=== PATIENT | male | born 1970 | race Two or more races ===

== ENCOUNTER 2017-06-02 14:28 | Observation (INO) | payer SELFPAY ==
[2017-06-02 14:38] VITALS: BMI 32.3
--- NOTE | 2017-06-02 17:01 | DR.EXTPAIN ---
HPI - Time seen Time seen: 16:57 - PCP Primary Care Physician: NFD - Complaint/Symptoms Chief Complaint Doctor Comments: States he fell off the back of a trailer about three feet high because the door was open and he fell off the trailer. states he hit his head but denies LOC. States he went to the clinic today and they did x-rays and told him that he had to have his clavicle cut. States he do not want to have another x-ray and refuses to have x-ray of his neck or repeat xray of his shoulder. Chief Complaint:: FELL AND BROKE COLLAR. INSIDE OF TRAILOR AT END OF TRAILOR NO DOORS. I FELL ON THE DIRT. FELL Sunday06/01/17 ABOUT 1300. WENT TO [facility] IN [facility] - Source History Provided: Patient - Mode of arrival Mode of Arrival: Ambulatory - Timing Onset of Chief Complaint: 06/01/17 PMH - PMH Past Medical History: No Past Surgical History: No - Family History History of Family Medical Conditions: No - Social History Does any household member use tobacco: No Alcohol Use: Rarely Do you use any recreational Drugs:: No Lives With: Family Lives Where: Home - infectious screening In the last 2 months have you had wt loss of >10#?: NO Have you had fever, night sweats or hemotysis?: No Have you traveled outside the country in the last 6 months?: No Isolation: Standard ROS - Review of Systems Constitutional: No Symptoms Reported Eyes: No Symptoms Reported ENTM: No Symptoms Reported Respiratoy: No Symptoms Reported. negative: See HPI, Productive Cough, Non- Productive Cough, Moist Cough, Dry Cough, Hacking Cough, Barking Cough, Brassy Cough, Orthopnea, Short of Breath, Stridor, Wheezing, Hemoptysis, Other Cardiovascular: No Symptoms Reported Gastrointestinal/Abdominal: No Symptoms Reported Genitourinary: No Symptoms Reported Neurological: No Symptoms Reported. negative: See HPI, Anxiety, Depressed, Emotional Problems, Headache, Numbness, Paresthesia, Pre-existing Deficit, Seizure, Tingling, Tremors, Weakness, Dizziness, Problems Walking, Speech Problem, Other Musculoskeletal: No Symptoms Reported, Left, Shoulder Integumentary: No Symptoms Reported Hematologic/Lymphatic: No Symptoms Reported Endocrine: No Symptoms Reported Psychiatric: No Symptoms Reported. negative: See HPI, Anxiety, Depression, Hallucinations, Excessive crying, Suicidal, Other PE - Vital Signs Vitals: Temperature 98.7 F Pulse Rate 68 Respiratory Rate 20 Blood Pressure 136/87 O2 Sat by Pulse Oximetry 98 ROR - Labs Reviewed Result Diagrams: 06/02/17 18:20 06/02/17 18:20 Laboratory: WBC 9.8 X10^3/uL (3.6-10.0) 06/02/17 18:20 RBC 5.08 X10^6/uL (4.7-6.0) 06/02/17 18:20 Hgb 14.3 g/dL (13.5-18.0) 06/02/17 18:20 Hct 42.5 % (42.0-54.0) 06/02/17 18:20 MCV 83.7 fL (80.0-100.0) 06/02/17 18:20 MCH 28.2 pg (27.0-34.0) 06/02/17 18:20 MCHC 33.7 g/dL (33.0-35.0) 06/02/17 18:20 RDW 13.4 % (11.6-16.5) 06/02/17 18:20 Plt Count 235 X10^3/uL (150.0-450.0) 06/02/17 18:20 MPV 8.8 fL (7.4-11.0) 06/02/17 18:20 Neut % 54.7 % (42.0-75.0) 06/02/17 18:20 Lymph % 34.2 % (21.0-51.0) 06/02/17 18:20 [place] % 7.9 % (0.0-13.0) 06/02/17 18:20 Eos % 2.7 % (0.9-2.9) 06/02/17 18:20 Baso % 0.5 % (0.2-1.0) 06/02/17 18:20 Neut # 5.3 x10^3/uL (2.2-4.8) H 06/02/17 18:20 Lymph # 3.4 X10^3/uL (1.3-2.9) H 06/02/17 18:20 [place] # 0.8 x10^3/uL (0.3-0.8) 06/02/17 18:20 Eos # 0.3 x10^3/uL (0.0-0.2) H 06/02/17 18:20 Baso # 0.1 X10^3/uL (0.0-0.1) 06/02/17 18:20 Absolute Nucleated RBC 0.1 /100WBC 06/02/17 18:20 INR Target Range - 06/02/17 18:20 INR 0.95 (0.8-1.3) 06/02/17 18:20 PTT 31.8 SECONDS (22.9-36.5) 06/02/17 18:20 PTT Comment - 06/02/17 18:20 Sodium 139 mmol/L (136-145) 06/02/17 18:20 Corrected Sodium TNP 06/02/17 18:20 Potassium 4.3 mmol/L (3.5-5.1) 06/02/17 18:20 Chloride 105 mmol/L (98-107) 06/02/17 18:20 Carbon Dioxide 25.9 mmol/L (21-32) 06/02/17 18:20 BUN 16 mg/dL (7-18) 06/02/17 18:20 Creatinine 1.11 mg/dL (0.70-1.30) 06/02/17 18:20 Est GFR (MDRD) Af Amer > 60 (>60) 06/02/17 18:20 Est GFR (MDRD) Non-Af > 60 (>60) 06/02/17 18:20 Glucose 98 mg/dL (65-99) 06/02/17 18:20 Calcium 8.3 mg/dL (8.5-10.1) L 06/02/17 18:20 Corrected Calcium TNP 06/02/17 18:20 Total Bilirubin 0.40 mg/dL (0.2-1.0) 06/02/17 18:20 AST 19 Units/L (15-37) 06/02/17 18:20 ALT 32 Units/L (12-78) 06/02/17 18:20 Alkaline Phosphatase 55 Units/L (46-116) 06/02/17 18:20 Total Protein 7.8 g/dL (6.4-8.2) 06/02/17 18:20 Albumin 3.9 g/dL (3.4-5.0) 06/02/17 18:20 Globulin 3.9 g/dL (2.5-4.5) 06/02/17 18:20 Albumin/Globulin Ratio 1.0 Ratio (1.1-2.1) L 06/02/17 18:20 - XRAY XRAY Interpreted by: Radiologist (CT chest: Left midclavicular fracture. No acute traumatic injury to the lungs) - Diagnosis Discharge Problem: Closed left clavicular fracture, Left Midclavicular fracture - Discharge Plan Disposition: 09 ADMITTED INPATIENT Condition: Stable - Follow ups/Referrals Follow ups/Referrals: NFD,None [Primary Care Provider] - 3 days - Instructions
[2017-06-02 18:33] LABS: BASOPHILS # (AUTO) 0.1 X10^3/uL (0.0-0.1); BASOPHILS % (AUTO) 0.5 % (0.2-1.0); EOSINOPHILS # (AUTO) 0.3 x10^3/uL (0.0-0.2); EOSINOPHILS % (AUTO) 2.7 % (0.9-2.9); HEMATOCRIT 42.5 % (42.0-54.0); HEMOGLOBIN 14.3 g/dL (13.5-18.0); LYMPHOCYTES # (AUTO) 3.4 X10^3/uL (1.3-2.9); LYMPHOCYTES % (AUTO) 34.2 % (21.0-51.0); MEAN CORPUSCULAR HEMOGLOBIN 28.2 pg (27.0-34.0); MEAN CORPUSCULAR HGB CONC 33.7 g/dL (33.0-35.0); MEAN CORPUSCULAR VOLUME 83.7 fL (80.0-100.0); MEAN PLATELET VOLUME 8.8 fL (7.4-11.0); MONOCYTES # (AUTO) 0.8 x10^3/uL (0.3-0.8); MONOCYTES % (AUTO) 7.9 % (0.0-13.0); NEUTROPHILS # (AUTO) 5.3 x10^3/uL (2.2-4.8); NEUTROPHILS % (AUTO) 54.7 % (42.0-75.0); PLATELET COUNT 235 X10^3/uL (150.0-450.0); RED BLOOD COUNT 5.08 X10^6/uL (4.7-6.0); RED CELL DISTRIBUTION WIDTH 13.4 % (11.6-16.5); WHITE BLOOD COUNT 9.8 X10^3/uL (3.6-10.0)
--- NOTE | 2017-06-02 18:34 | CT ---
HISTORY: Chest trauma injury, fall Study: CT chest without contrast Comparison: None Technique: Axial noncontrast images with coronal and sagittal reformats. Dose reduction procedures we re used with mA/kv adjusted for body size. The examination is limited due to the lack of intravenous contrast. Findings: There is a left midclavicular fracture present. No acute thoracic spinal abnormality is identified. The left ribs and right ribs appear intact. Examination of the mediastinum demonstrated no evidence f or mediastinal hematoma. Evaluation of the aorta is limited due to the lack of intravenous contrast. No definite abnormalities identified to the limits of an unenhanced examination. No enlarged mediasti nal or hilar adenopathy is identified. Calcified right hilar nodes indicate old granulomatous disease . Those portions of the upper abdominal organs visualized were within normal limits to the limitation s of an unenhanced examination. Examination of the lung marques demonstrated no evidence for pulmonary contusion or pneumothorax. There are areas of subsegmental atelectasis present bilaterally. No alveo lar infiltrates, areas of consolidation, significant nodules or masses, peribronchial thickening, or bronchiectasis is identified. IMPRESSION: Left midclavicular fracture No acute traumatic injury to the lungs Reported By:
[2017-06-02 18:50] LABS: ALANINE AMINOTRANSFERASE 32 Units/L (12-78); ALBUMIN 3.9 g/dL (3.4-5.0); ALKALINE PHOSPHATASE 55 Units/L (46-116); ASPARTATE AMINO TRANSFERASE 19 Units/L (15-37); BLOOD UREA NITROGEN 16 mg/dL (7-18); CALCIUM 8.3 mg/dL (8.5-10.1); CARBON DIOXIDE 25.9 mmol/L (21-32); CHLORIDE 105 mmol/L (98-107); CREATININE 1.11 mg/dL (0.70-1.30); SODIUM 139 mmol/L (136-145); TOTAL PROTEIN 7.8 g/dL (6.4-8.2); eGFR BLACK RACES > 60 (>60); eGFR NON BLACK RACES > 60 (>60)
[2017-06-02] MEDS ORDERED: MORPHINE SULFATE INJ 2 MG INJ IVP PRN (18:56)
[2017-06-02] MEDS ORDERED: ZOFRAN INJ 4 MG VIAL IVP PRN (18:57)
[2017-06-02] MEDS ORDERED: NS 250 ML IV 0 ML IV ONE (20:28)
[2017-06-02] MEDS: PEPCID 20 MG IV PREMIX* 20 MG/50 ML BAG IV SCH ×2 (20:47→21:49)
[2017-06-03 05:34] LABS: BASOPHILS % (AUTO) 0.4 % (0.2-1.0); EOSINOPHILS # (AUTO) 0.2 x10^3/uL (0.0-0.2); EOSINOPHILS % (AUTO) 2.8 % (0.9-2.9); HEMATOCRIT 40.2 % (42.0-54.0); HEMOGLOBIN 13.7 g/dL (13.5-18.0); LYMPHOCYTES # (AUTO) 2.8 X10^3/uL (1.3-2.9); LYMPHOCYTES % (AUTO) 32.9 % (21.0-51.0); MEAN CORPUSCULAR HEMOGLOBIN 28.2 pg (27.0-34.0); MEAN CORPUSCULAR HGB CONC 34.2 g/dL (33.0-35.0); MEAN CORPUSCULAR VOLUME 82.4 fL (80.0-100.0); MEAN PLATELET VOLUME 9.4 fL (7.4-11.0); MONOCYTES # (AUTO) 0.7 x10^3/uL (0.3-0.8); MONOCYTES % (AUTO) 8.2 % (0.0-13.0); NEUTROPHILS # (AUTO) 4.7 x10^3/uL (2.2-4.8); NEUTROPHILS % (AUTO) 55.7 % (42.0-75.0); PLATELET COUNT 204 X10^3/uL (150.0-450.0); RED BLOOD COUNT 4.88 X10^6/uL (4.7-6.0); RED CELL DISTRIBUTION WIDTH 13.1 % (11.6-16.5); WHITE BLOOD COUNT 8.5 X10^3/uL (3.6-10.0)
[2017-06-03 05:39] LABS: ALANINE AMINOTRANSFERASE 25 Units/L (12-78); ALBUMIN 3.3 g/dL (3.4-5.0); ALKALINE PHOSPHATASE 50 Units/L (46-116); ASPARTATE AMINO TRANSFERASE 15 Units/L (15-37); BLOOD UREA NITROGEN 16 mg/dL (7-18); CALCIUM 7.9 mg/dL (8.5-10.1); CARBON DIOXIDE 23.2 mmol/L (21-32); CHLORIDE 107 mmol/L (98-107); COR CA(FOR HYPOALB) 8.5 mg/dL (8.5-10.1); SODIUM 141 mmol/L (136-145); TOTAL PROTEIN 6.7 g/dL (6.4-8.2); eGFR BLACK RACES > 60 (>60); eGFR NON BLACK RACES > 60 (>60)
[2017-06-03] MEDS ORDERED: MARCAINE 0.25% INJ ONE (08:41)
[2017-06-03] MEDS ORDERED: LR 1000 ML IV 1,000 ML IV ONE (08:41)
[2017-06-03] MEDS ORDERED: ANCEF 1 GM IV PREMIX* 1 GM/50 ML BAG IV ONE (08:41)
[2017-06-03] MEDS ORDERED: BACITRACIN VIAL ONE ×2 (08:44→14:58)
[2017-06-03] MEDS: PEPCID 20 MG IV PREMIX* 20 MG/50 ML BAG IV SCH ×2 (09:00→21:05)
[2017-06-03] MEDS ORDERED: BACITRACIN ZINC ONE (09:14)
[2017-06-03] MEDS ORDERED: DIPRIVAN VIAL ONE (09:22)
[2017-06-03] MEDS ORDERED: XYLOCAINE 2 % (PLAIN) ONE (09:22)
[2017-06-03] MEDS ORDERED: VERSED ONE (09:22)
[2017-06-03] MEDS ORDERED: NORCURON INJ 10 MG VIAL ONE (09:22)
[2017-06-03] MEDS ORDERED: NEOSTIGMINE INJ ONE (09:22)
[2017-06-03] MEDS ORDERED: QUELICIN (OR ANECTINE) ONE (09:22)
[2017-06-03] MEDS ORDERED: ZOFRAN INJ 4 MG VIAL ONE (09:22)
[2017-06-03] MEDS ORDERED: ROBINUL ONE (09:22)
--- NOTE | 2017-06-03 09:56 | DR.H&P ---
H&P - History & Physical for Day of: H&P Date: 06/02/17 - Chief Complaint Chief Complaint: FALL, LEFT SHOULDER, CHEST PAIN - Allergies Allergies/Adverse Reactions: Allergies Allergy/AdvReac Type Severity Reaction Status Date / Time No Known Drug Allergies Allergy Verified 06/02/17 14:38 - History of Present Illness History of Present Illness: 46 HM ER ADMIT AFTER FALLING FROM APPROX 3FT LANDING ON LEFT SHOULDER WITH SEVERE PAIN. PT HAD XRAY IN ER REVEALING AND ACUTE CLAVICLE FRACTURE. PT DENIES ANY PMH. PT ADMITTED FOR PAIN CONTROL AND ORTHO CONSULT - Past Medical History Past Medical History: denies: CHF, COPD, Coronary Artery Disease, Diabetes, GERD , Hypertension - Past Surgical History Surgical History: No History - Family History Family Medical History: denies: Diabetes Mellitus, Coronary Artery Disease, Hypertension - Social History Does patient currently use any type of tobacco product: No Have you used tobacco products in the last 12 months: No Type of Tobacco Use: None Does any household member use tobacco: No Alcohol Use: Occasionally Drug Use: None - Medications Home Medications: NK [NK] 06/02/17 [History Confirmed 06/02/17] - Review of Systems Constitutional: Chills Eyes: No Symptoms Reported ENT: No Symptoms Reported Respiratory: No Symptoms Reported Cardiovascular: Chest Pain Gastrointestinal: No Symptoms Reported Genitourinary: No Symptoms Reported Musculoskeletal: Shoulder Pain, Arm Pain Skin: Bruising Neurological: No Symptoms Reported - Physical Exam Vital Signs: Temperature 98.1 F Pulse Rate [Left Radial] 57 Pulse Rate 68 Respiratory Rate 20 Blood Pressure [Right Arm] 132/79 Blood Pressure 136/87 O2 Sat by Pulse Oximetry 93 Oriented: Normal Eyes: Normal Ear: Normal Nose: Normal Throat: Normal Respiratory: Clear Throughout Cardiovascular: Normal : Normal Auscultation: Bowel Sounds: Normal Palpation: Normal Tenderness: Normal Skin: Normal Musculoskeletal: Left, Shoulder, Clavicle, Swelling, Tender, Deformity Psychiatric: Anxiety Affect: Anxious Speech Pattern: Clear, Appropriate - Assessment/Plan (1) Closed left clavicular fracture Status: Acute Plan: ADMIT, PAIN CONTROL ORTHO CONSULT
[2017-06-03] MEDS ORDERED: FENTANYL INJ 250 mcg ONE (12:33)
[2017-06-03] MEDS ORDERED: NS IRRIGATION 1000 ML 1,000 ML with BACITRACIN VIAL 50,000 UNT IR ONE ×4 (13:06→15:00)
--- NOTE | 2017-06-03 13:59 | PCM.PROG ---
Progress Note - Progress Note for Day of Date: 06/03/17 (SCRIBE FOR DR BENZ) - Subjective Subjective: LEFT UPPER CHEST PAIN, PAIN TO COLLAR BONE. PT IS 46 MALE ER ADMIT WITH FX CLAVICLE FOLLOWING TRAUMATIC FALL. PT IS CURRENTLY NPO WITH PAIN CONTROL , ORTHO CONSULT - Past Medical Family Social History Past Med/Fam/Surg Hx: No changes since H&P Allergies: Allergies No Known Drug Allergies Allergy (Verified 06/02/17 14:38) - Review of Systems ROS: No change since H&P - Vital Signs and I&O's Vital Signs: Temperature 98.1 F Pulse Rate [Left Radial] 57 Pulse Rate 68 Respiratory Rate 20 Blood Pressure [Right Arm] 132/79 Blood Pressure 136/87 O2 Sat by Pulse Oximetry 93 Intake and Output: Intake & Output 06/01/17 06/02/17 06/03/17 06/04/17 11:59 11:59 11:59 11:59 Intake Total 310 Balance 310 - Physical Exam Oriented: Normal Eyes: Normal Ear: Normal Nose: Normal Throat: Normal Respiratory: Normal Cardiovascular: Normal : Normal Auscultation: Bowel Sounds: Normal Tenderness: Normal Skin: Normal Musculoskeletal: Left, Shoulder, Clavicle, Swelling, Tender, Deformity Psychiatric: Anxiety Affect: Anxious Speech Pattern: Clear, Appropriate - Laboratory and Diagnostics Result Diagrams: 06/03/17 04:40 06/03/17 04:40 Labs: Laboratory WBC 8.5 X10^3/uL (3.6-10.0) 06/03/17 04:40 RBC 4.88 X10^6/uL (4.7-6.0) 06/03/17 04:40 Hgb 13.7 g/dL (13.5-18.0) 06/03/17 04:40 Hct 40.2 % (42.0-54.0) L 06/03/17 04:40 MCV 82.4 fL (80.0-100.0) 06/03/17 04:40 MCH 28.2 pg (27.0-34.0) 06/03/17 04:40 MCHC 34.2 g/dL (33.0-35.0) 06/03/17 04:40 RDW 13.1 % (11.6-16.5) 06/03/17 04:40 Plt Count 204 X10^3/uL (150.0-450.0) 06/03/17 04:40 MPV 9.4 fL (7.4-11.0) 06/03/17 04:40 Neut % 55.7 % (42.0-75.0) 06/03/17 04:40 Lymph % 32.9 % (21.0-51.0) 06/03/17 04:40 [place] % 8.2 % (0.0-13.0) 06/03/17 04:40 Eos % 2.8 % (0.9-2.9) 06/03/17 04:40 Baso % 0.4 % (0.2-1.0) 06/03/17 04:40 Neut # 4.7 x10^3/uL (2.2-4.8) 06/03/17 04:40 Lymph # 2.8 X10^3/uL (1.3-2.9) 06/03/17 04:40 [place] # 0.7 x10^3/uL (0.3-0.8) 06/03/17 04:40 Eos # 0.2 x10^3/uL (0.0-0.2) 06/03/17 04:40 Baso # 0.0 X10^3/uL (0.0-0.1) 06/03/17 04:40 Absolute Nucleated RBC 0.1 /100WBC 06/03/17 04:40 INR Target Range - 06/02/17 18:20 INR 0.95 (0.8-1.3) 06/02/17 18:20 PTT 31.8 SECONDS (22.9-36.5) 06/02/17 18:20 PTT Comment - 06/02/17 18:20 Sodium 141 mmol/L (136-145) 06/03/17 04:40 Corrected Sodium TNP 06/03/17 04:40 Potassium 4.0 mmol/L (3.5-5.1) 06/03/17 04:40 Chloride 107 mmol/L (98-107) 06/03/17 04:40 Carbon Dioxide 23.2 mmol/L (21-32) 06/03/17 04:40 BUN 16 mg/dL (7-18) 06/03/17 04:40 Creatinine 1.10 mg/dL (0.70-1.30) 06/03/17 04:40 Est GFR (MDRD) Af Amer > 60 (>60) 06/03/17 04:40 Est GFR (MDRD) Non-Af > 60 (>60) 06/03/17 04:40 Glucose 101 mg/dL (65-99) H 06/03/17 04:40 Calcium 7.9 mg/dL (8.5-10.1) L 06/03/17 04:40 Corrected Calcium 8.5 mg/dL (8.5-10.1) 06/03/17 04:40 Total Bilirubin 0.20 mg/dL (0.2-1.0) 06/03/17 04:40 AST 15 Units/L (15-37) 06/03/17 04:40 ALT 25 Units/L (12-78) 06/03/17 04:40 Alkaline Phosphatase 50 Units/L (46-116) 06/03/17 04:40 Total Protein 6.7 g/dL (6.4-8.2) 06/03/17 04:40 Albumin 3.3 g/dL (3.4-5.0) L 06/03/17 04:40 Globulin 3.4 g/dL (2.5-4.5) 06/03/17 04:40 Albumin/Globulin Ratio 1.0 Ratio (1.1-2.1) L 06/03/17 04:40 - Plan (1) Closed left clavicular fracture Status: Acute Plan: NPO THIS AM, PAIN CONTROL ORTHO CONSULT
[2017-06-03] MEDS ORDERED: DILAUDID INJ ONE (14:32)
[2017-06-03] MEDS ORDERED: SUPRANE IN ONE (15:47)
[2017-06-03] MEDS ORDERED: TORADOL 30 MG VIAL ONE (15:47)
[2017-06-03] MEDS ORDERED: BENADRYL INJ 50 MG VIAL IVP PRN (15:55)
[2017-06-03] MEDS ORDERED: DILAUDID INJ IVP PRN (15:55)
[2017-06-03] MEDS ORDERED: ZOFRAN INJ 4 MG VIAL IVP PRN (15:55)
[2017-06-03] MEDS ORDERED: PHENERGAN INJ 25 MG IVP PRN (15:55)
[2017-06-03] MEDS ORDERED: REGLAN INJ 10 MG VIAL IVP PRN (15:55)
--- NOTE | 2017-06-03 16:35 | RAD ---
HISTORY: Clavicle injury Study: Two views left clavicle Comparison: None Findings: ORIF of the left clavicle is observed with fixation plate along the superior aspect of the left clavi ceferino. Skin gilda overlying the shoulder are noted. IMPRESSION: 1. ORIF with improved anatomic alignment of the left clavicle is observed. Reported By:
[2017-06-04] MEDS: PERCOCET TAB 5/325 MG PO PRN ×3 (01:07→15:38)
[2017-06-04 07:52] LABS: BASOPHILS % (AUTO) 0.4 % (0.2-1.0); EOSINOPHILS # (AUTO) 0.1 x10^3/uL (0.0-0.2); EOSINOPHILS % (AUTO) 0.8 % (0.9-2.9); HEMATOCRIT 40.8 % (42.0-54.0); HEMOGLOBIN 13.9 g/dL (13.5-18.0); LYMPHOCYTES # (AUTO) 2.8 X10^3/uL (1.3-2.9); LYMPHOCYTES % (AUTO) 24.5 % (21.0-51.0); MEAN CORPUSCULAR HEMOGLOBIN 27.8 pg (27.0-34.0); MEAN CORPUSCULAR VOLUME 81.7 fL (80.0-100.0); MONOCYTES # (AUTO) 0.9 x10^3/uL (0.3-0.8); MONOCYTES % (AUTO) 7.6 % (0.0-13.0); NEUTROPHILS # (AUTO) 7.7 x10^3/uL (2.2-4.8); NEUTROPHILS % (AUTO) 66.7 % (42.0-75.0); PLATELET COUNT 211 X10^3/uL (150.0-450.0); RED BLOOD COUNT 4.99 X10^6/uL (4.7-6.0); RED CELL DISTRIBUTION WIDTH 13.4 % (11.6-16.5); WHITE BLOOD COUNT 11.5 X10^3/uL (3.6-10.0)
[2017-06-04 08:55] LABS: ALANINE AMINOTRANSFERASE 29 Units/L (12-78); ALBUMIN 3.2 g/dL (3.4-5.0); ALKALINE PHOSPHATASE 48 Units/L (46-116); ASPARTATE AMINO TRANSFERASE 18 Units/L (15-37); BLOOD UREA NITROGEN 12 mg/dL (7-18); CALCIUM 8.3 mg/dL (8.5-10.1); CHLORIDE 104 mmol/L (98-107); COR CA(FOR HYPOALB) 8.9 mg/dL (8.5-10.1); CREATININE 1.07 mg/dL (0.70-1.30); SODIUM 138 mmol/L (136-145); TOTAL PROTEIN 7.1 g/dL (6.4-8.2); eGFR BLACK RACES > 60 (>60); eGFR NON BLACK RACES > 60 (>60)
[2017-06-04 19:08] VITALS: BP 128/66
--- NOTE | 2017-06-14 09:51 | OR.GENERIC ---
"Post-Op Note Generic - Post-Op Note Operative Report: preoperative diagnosis-left clavicle segment of fracture, closed, unstable. Postoperative diagnosis-left clavicle fracture, segmental, closed, unstable date of surgery-06/03/17 Procedure-left clavicle open reduction and internal fixation with plates and screws Indication-patient 46-year-old male [place] Was seen in the emergency room. He was admitted and underwent medical and a consult placed to make. History and examination confirmed. He has had a segmental fracture involving the midshaft as well as the lateral end of the clavicle. Natural history and treatment discussions were done with him. He wanted to proceed with open reduction internal fixation. Conservative management versus ORIF with plates and screws versus IM nail were discussed with him. He wanted to proceed with ORIF with plates and screws. He was taken to the procedure in detail. Complications including but not limited to infection, hemorrhage, neurovascular damage, malunion, nonunion, implant failure, need for further surgeries were explained to him in detail. He understood and verbalized the same. Preoperative-patient was seen in the preop holding area. Limb was marked. Patient was met in the preop holding area by the design director. Patient got a proper antibiotic. Procedure-patient was brought to the operating room. Patient was placed supine on the operating table. Gen. anesthesia was indced and a successful endotracheal intubation was completed. Patient was placed in the beach position at this time. The limb was prepped and draped. An incision placed over the superior aspect of the clavicle extending from a the middle part of the shaft to the lateral end of the clavicle. Dissection was carried down through the subcutis tissue to expose the platysma.|Platysma incised and fracture site exposed. The midclavicle fracture was exposed first. Periosteum elevated only at the fracture site. Fracture site condition noted. Fracture form to be unstable. Provisional reduction of the clavicle fracture done with the help of direct manipulation with reduction clamps. Held in position with a temporary K wire. The lateral end of the clavicle exposed at this time. Superior dissection carried. It was made sure that none of the deltoid insertion was interfered. The fracture was about 5 cm from the end of the clavicle. Fracture was a short oblique fracture which foramina superomedially to insertion laterally. Fracture ends exposed. Periosteum elevated and the fracture ends. Reduction achieved and held in place with the pointer reduction clamp. Temporary K wire so placed. An appropriate length of longest possible lateral clavicle plate was chosen. It was fixed provisionally To the distal ulnar as was the medial end. The lateral and was fixed first with the locking mode. Gradually the plate was brought to the bone with the help of multiple nonlocking screws. Regular x-ray views were checked throughout the procedure. The reduction and fixation of the plate was found to be satisfactory. The rest of the holes were filled in locking mode. Thorough irrigation was done. Wound was closed in layers. Postoperative-patient was woken up after the procedure. Extubation was done successfully. Patient was placed in a shoulder immobilizer. Patient was sent to the PACU in stable condition. The family was updated about procedure. Postop x-rays were obtained which shows an satisfactory reduction and placement of the implant. Plan-we will have him admit overnight for pain control. We will discharge him tomorrow morning with the prescriptions for pain. Advised to followup as requested. Keep the dressing clean and dry. Take medications as prescribed. Call the office or come back to the emergency room in case of any concerns."
== END 2017-06-04 16:45 | disposition home or self-care (01) ==
LOC: ER 14:45 → UNDOADMOB 18:40 → MED/SURG 18:40
PROVIDERS: ADMIT Internal Medicine; ATTEND Internal Medicine
PROC: 0PSB04Z Reposition Left Clavicle with Internal Fixation Device, Open Approach (ICD-10-PCS; principal; 2017-06-03 11:00)
DX: S42.012A Anterior displaced fracture of sternal end of left clavicle, initial encounter for closed fracture (principal); R07.89 Other chest pain; W17.89XA Other fall from one level to another, initial encounter; Y92.89 Other specified places as the place of occurrence of the external cause
CPT/HCPCS: 36415; 71250; 73000; 80053; 85025; 85610; 85730; 93005; 93010; 94760; 96365; 99218; 99284; A4216; A4222; S0020; S0028; G0378; J0330; J0690; J1170; J1885; J2001; J2250; J2405; J2710; J3010; J3490; J7120